=== PATIENT | male | born 1945 | race Caucasian/White ===

== ENCOUNTER 2018-05-19 02:56 | Inpatient (IN) | payer OTHER, MEDICARE ==
[~2018-05-19] VITALS: Ht 180.3 cm; Wt 115.7 kg
[2018-05-19] VITALS (7 sets, daily range): BP systolic 142–175; BP diastolic 69–94
--- NOTE | ~2018-05-19 | PROC ---
[facility] [address] [place] [address] PROCEDURE REPORT Name: ALETHA RUVALCABA Room: [address] IN M.R.#: [id number] Admission: 05/19/18 Attend Phys: Carlos Doyle MD Discharge: 05/20/18 Date of : 47 Report #: [id number] THIS REPORT FOR: //name// For GI report, please see the Provation report in Perceptive 7 content. By: [id number] Records Staff JOCY /NADJA
[~2018-05-19 02:56] MED LIST: ALLOPURINOL 30300 M1 PO; ARIXTRA; CARDIZEM CD240 MG PO; COLACE100 MG PO; DEPO-TESTO200 MG/1 M INJECTION; DIOVAN 80 MG TA80 M1 PO; DIOVAN PO; DYAZIDE 37.5-21 EACH PO; LEVOTHYROXINE100 MC1 PO; LEVOTHYROXINE100 MCG PO; OXYCODONE HCL 55 MG PO; PERCOCET 5-3251 EACH PO; TRIAMTERENE PO
[2018-05-19] MEDS ORDERED: ASPIRIN325 PO (03:11)
[2018-05-19] MEDS ORDERED: CIALIS20 MG PO (03:14)
[2018-05-19 03:22] LABS: URINE BILIRUBIN NEGATIVE (Negative); URINE BLOOD 1+ (Negative); URINE CLARITY CLEAR; URINE COLOR YELLOW; URINE GLUCOSE-RANDOM NEGATIVE (Negative); URINE KETONES NEGATIVE (Negative); URINE LEUKOCYTES-REFLEX NEGATIVE (Negative); URINE NITRITE-REFLEX NEGATIVE (Negative); URINE PROTEIN TRACE (Negative); URINE SPECIFIC GRAVITY 1.025 (1.005-1.030); URINE UROBILINOGEN 0.2 E.U./dl (0.2-1.0)
[2018-05-19 03:29] LABS: ABSOLUTE BASOPHILS 0.1 thou/uL (0.0-0.2); ABSOLUTE EOSINOPHILS 0.2 thou/uL (0.0-0.7); ABSOLUTE LYMPHOCYTES 2.1 thou/uL (0.8-5.3); ABSOLUTE MONOCYTES 1.1 thou/uL (0.0-1.2); ABSOLUTE NEUTROPHILS 5.8 thou/uL (1.6-8.1); BASOPHILS 0.7 %; EOSINOPHILS 1.7 %; HEMATOCRIT 57.6 % (42.0-52.0); LYMPHOCYTES 22.6 %; MCH 30.9 pg (26.0-34.0); MCV 93.6 fL (80.0-100.0); MONOCYTES 12.2 %; MPV 7.8 fl. (7.2-11.1); NUCLEATED RBCS 0 /100WBC; PLATELET COUNT* 209 thou/uL (150-400); POLYS 62.8 %; RBC 6.16 mil/uL (4.50-6.00); RDW-CV 15.4 % (10.5-14.5); WBC 9.2 thou/uL (4.0-11.0)
[2018-05-19 03:38] LABS: CREATININE 1.3 mg/dL (0.6-1.3); INR 1.1; POTASSIUM 3.7 mmol/L (3.5-5.1)
[2018-05-19 03:42] LABS: ALBUMIN 3.8 g/dL (3.4-5.0); TOTAL BILIRUBIN 0.4 mg/dL (<0.1-1.0); TOTAL PROTEIN 7.2 g/dL (6.4-8.2)
[2018-05-19 03:48] LABS: BACTERIA-REFLEX 1-9 Few /HPF (None Seen); CASTS None Seen /LPF (None Seen); CRYSTALS None Seen /LPF (None Seen); MUCUS 4-6 Moderate strn/LPF (None Seen); SQUAMOUS 0-3 Few /LPF (0-3); URINE RBC 3-10 Few /HPF (0-2); URINE WBC-REFLEX None Seen /HPF (0-5)
[2018-05-19 07:23] LABS: HEMOGLOBIN 17.9 gm/dL (14.0-18.0)
--- NOTE | 2018-05-19 09:24 | EKG ---
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: GL : 1945 Requested By: Eunice Gallegos Order Number: [id number] MD: Michele Gloria Measurements Intervals [place] Rate: 69 P: 51 MI: 172 QRS: 96 QRSD: 106 T: 32 QT: 412 QTc: 442 Interpretive Statements Sinus rhythm Right axis deviation Compared to ECG 10/21/2013 08:59:26 No significant changes Electronically Signed On 05-19-2018 9:24:45 CDT by Michele Gloria [email or web address] <ELECTRONICALLY SIGNED> By: Michele Gloria MD, [facility] 05/19/18 0924 [id number] Michele Gloria MD, [facility] /EPI
[2018-05-19 19:08] LABS: HEMATOCRIT 55.6 % (42.0-52.0); HEMOGLOBIN 18.4 gm/dL (14.0-18.0); MCH 30.9 pg (26.0-34.0); MCHC 33.1 g/dL (28.0-37.0); MCV 93.2 fL (80.0-100.0); MPV 7.7 fl. (7.2-11.1); RBC 5.96 mil/uL (4.50-6.00); RDW-CV 15.1 % (10.5-14.5); WBC 9.8 thou/uL (4.0-11.0)
[2018-05-20] VITALS: BP 147/83
[2018-05-20 04:00] VITALS: BP 130/77
[2018-05-20 05:05] LABS: ABSOLUTE EOSINOPHILS 0.1 thou/uL (0.0-0.7); ABSOLUTE LYMPHOCYTES 1.3 thou/uL (0.8-5.3); ABSOLUTE MONOCYTES 0.7 thou/uL (0.0-1.2); ABSOLUTE NEUTROPHILS 5.1 thou/uL (1.6-8.1); BASOPHILS 0.5 %; EOSINOPHILS 1.7 %; HEMATOCRIT 50.5 % (42.0-52.0); HEMOGLOBIN 16.6 gm/dL (14.0-18.0); LYMPHOCYTES 17.9 %; MCH 31.1 pg (26.0-34.0); MCHC 32.9 g/dL (28.0-37.0); MCV 94.5 fL (80.0-100.0); MONOCYTES 9.7 %; MPV 8.1 fl. (7.2-11.1); NUCLEATED RBCS 0 /100WBC; PLATELET COUNT* 181 thou/uL (150-400); POLYS 70.2 %; RBC 5.35 mil/uL (4.50-6.00); RDW-CV 15.4 % (10.5-14.5); WBC 7.3 thou/uL (4.0-11.0)
[2018-05-20 06:15] LABS: CALCIUM 7.9 mg/dL (8.5-10.1); POTASSIUM 3.8 mmol/L (3.5-5.1)
[2018-05-20 09:09] VITALS: BP 164/97
[2018-05-20] MEDS ORDERED: COZAAR 25 MG TA25 M1 PO ×2 (12:31→15:58)
[2018-05-20] MEDS ORDERED: PRILOSEC 20 MG20 MG PO (12:31)
[2018-05-20] MEDS ORDERED: TERAZOSIN HCL5 MG PO ×2 (12:32→15:58)
[2018-05-20 13:32] VITALS: BP 164/97
[2018-05-20] MEDS ORDERED: PROTONIX40 M2 PO (16:00)
--- NOTE | 2018-05-26 11:22 | CON ---
[address] [address] CONSULTATION Name: ALETHA RUVALCABA Room: [address] IN M.R.#: [id number] Admission: 05/19/18 Attend Phys: Carlos Doyle MD Discharge: 05/20/18 Date of : 47 Report #: [id number] THIS REPORT FOR: //name// CC: Viktor Doyle DATE OF SERVICE: 05/19/2018 HISTORY OF PRESENT ILLNESS: This is a pleasant 73-year-old male, with past medical history significant for hypertension and hypothyroidism, who is presenting with bleeding per rectum. The patient reports that yesterday, he woke up as he felt the urge to pass stool and when he did try to pass stool, he noticed russell blood. The patient reported passing bright red blood with blood clots. He reports that the episode repeated itself a couple of times and he presented to the hospital. The patient reports he is not having any significant abdominal pain, nausea, vomiting or hematemesis. He denies similar episodes in the past. The patient reports that his last colonoscopy was 5-6 years back. The patient denies any NSAID or anticoagulant use. PAST MEDICAL HISTORY: As mentioned above, the patient has a history of hypertension and hypothyroidism. PAST SURGICAL HISTORY: The patient had bilateral knee replacements. SOCIAL HISTORY: The patient denies smoking or recreational drug use. He reports intermittent alcohol use. FAMILY HISTORY: No family history of colon cancer. REVIEW OF SYSTEMS: A comprehensive 10-point review of systems is negative except for what was mentioned here. PHYSICAL EXAMINATION: VITAL SIGNS: Temperature 36.9, pulse rate 97, blood pressure 144/93, respirations 16, pulse oximetry 94%. GENERAL: The patient is alert, awake, oriented x 3. HEENT: Pupils are equal, round, reactive to light and accommodation. Mucous members are moist. There is no congestion. NECK: Supple. There is no supraclavicular lymphadenopathy. CARDIOVASCULAR: Rate and rhythm regular, S1, S2 present. LUNGS: Clear to auscultation bilaterally. ABDOMEN: Soft. There is no distention, no tenderness, no guarding or rigidity. EXTREMITIES: Warm, well perfused[place] [address] CONSULTATION Name: ALETHA RUVALCABA Room: [address]#: [id number] Admission: 05/19/18 Attend Phys: Carlos Doyle MD Discharge: 05/20/18 Date of : 47 Report #: [id number] NEUROLOGIC: No focal neurological deficit. SKIN: Warm and dry. LABORATORY DATA: Hemoglobin 17.9, hematocrit 54. Sodium 135, potassium 3.7, chloride 103, bicarbonate 28, BUN 21, creatinine 1.3, total bilirubin 0.4, AST 22, ALT 66, alkaline phosphatase 33. INR 1.1. CT abdomen and pelvis, ventral hernia near the umbilicus containing moderate amount of intra-abdominal fat. Numerous cysts in both kidneys. Numerous other gallstones and presence of a gallbladder without evidence of gallbladder inflammation or bile duct enlargement. No bowel obstruction, ileus or free air. ASSESSMENT AND PLAN: This is a very pleasant 73-year-old male, with past medical history significant for hypertension, hypothyroidism, who is presenting with a few episodes of painless hematochezia. PLAN: We will proceed with colonoscopy tomorrow and make further recommendation based on results of above. We will proceed with EGD and colonoscopy tomorrow and make further recommendations based on the above testing. <ELECTRONICALLY SIGNED> By: Mele Mark MD 05/26/18 1122 [id number] [id number] Mark MD /nt
--- NOTE | 2018-05-28 07:06 | PATH ---
[facility] [address] [place] [address] PATHOLOGY RPT PROCEDURE Name: VINNY RUVALCABA Room: [address] IN M.R.#: [id number] Admission: 05/19/18 Date of : 47 Discharge: 05/20/18 Report #: [id number] Path Case #: [id number] [facility] Accession Number: [id number] . 01 Material submitted: . TRANSVERSE COLON POLYP . 01 Clinical history: . None provided . 02 Diagnosis: Transverse colon polyp: - Tubular adenoma, negative for high-grade dysplasia. (NITHYA:eddie; 05/21/2018) QMS/05/21/2018 . 02 Electronically signed: . Darrius Spaulding MD, Pathologist NPI- [id number] . 01 Gross description: . Received in formalin labeled "Awi, Vinny, transverse colon polyp," are 2 segments of lake soft tissue measuring 1.6 x 0.4 x 0.3 cm in aggregate dimensions and ranging from 0.4 to 1.3 cm in maximum dimension. The specimen is submitted entirely in cassette A1. (TSD; 05/20/2018) TOB/TOB . 02 Pathologist provided ICD-10: D12.3 . 02 CPT . 539076 Specimen Comment: A courtesy copy of this report has been sent to Specimen Comment: [phone], , . Specimen Comment: Report sent to ,DR AHUMADA / DR ERICKSON Performed at: [address], [place] [id number] MD Floyd Ellison MD Phone: [phone] Performed at: 02 [facility] [address], [place], [place] [id number] MD Darrius Spaulding MD Phone: [phone]
== END 2018-05-20 16:20 | disposition home or self-care (01) | DRG 378 ==
LOC: M.ERS 02:56 → M.2W 05:35 → M.TBA-ER 05:35 → M.2W 05:49
PROVIDERS: Emergency Medicine; Internal Medicine; Internal Medicine Gastroenterology
PROC: 0DJ08ZZ Inspection of Upper Intestinal Tract, Via Natural or Artificial Opening Endoscopic (ICD-10-PCS; principal; 2018-05-20)
PROC: 0DBL8ZX Excision of Transverse Colon, Via Natural or Artificial Opening Endoscopic, Diagnostic (ICD-10-PCS; principal; 2018-05-20)
DX: K57.31 Diverticulosis of large intestine without perforation or abscess with bleeding (principal); N17.9 Acute kidney failure, unspecified; E87.1 Hypo-osmolality and hyponatremia; D62 Acute posthemorrhagic anemia; E86.0 Dehydration; I10 Essential (primary) hypertension; E03.9 Hypothyroidism, unspecified; D12.3 Benign neoplasm of transverse colon; K20.9 Esophagitis, unspecified; Z96.653 Presence of artificial knee joint, bilateral; D75.1 Secondary polycythemia; G47.30 Sleep apnea, unspecified; Z79.82 Long term (current) use of aspirin; Z79.899 Other long term (current) drug therapy; Z91.013 Allergy to seafood